=== PATIENT | female | born 1950 ===

== ENCOUNTER → 2018-10-03 | Outpatient (CLI) | payer MEDICARE, OTHER ==
[~2018-10-03] MED LIST: ASPI-1471 PO; DULO60CA56 PO; ESOM40CA42 PO; FLU180SY11 IM; MELO-205 PO; PRAM0.2520 PO; PRAM0.2524 PO
== END ==
LOC: LAB 14:55
PROVIDERS: ATTEND Emergency Medicine
DX: Z02.1 Encounter for pre-employment examination (principal)
CPT/HCPCS: 86480

== ENCOUNTER → 2018-10-08 | Outpatient (CLI) | payer MEDICARE, OTHER ==
--- NOTE | 2018-10-08 11:48 | RADIOLOGY IMAGING REPORT ---
FAC[place] [facility] [place] NAME: Nancy Johnson : 1950 MR: [id number] V: [id number] EXAM DATE: ORDERING PHYSICIAN: ANIYA HOLLINS TECHNOLOGIST: Location: [facility] [place] Patient: Nancy Johnson : 1950 Visit/Account:[id number] Date of Sevice: 10/08/2018 DEXA Scan Clinical history: screening. Comparison: None. LUMBAR SPINE: The bone mineral density (BMD) measured from L1-L4 correlates with a Z-score of 4.4 and a T-score of 3.2 which is within normal range as defined by the World Health Organization. The corresponding risk of fracture in the lumbar spine is not increased compared with a young adult reference population. HIP: Bone mineral density (BMD) measured in the Left total hip region correlates with a Z-score of 1.0 and a T-score of 0.0. The T-score of the femoral neck is -0.3. The lower of the two T score s is within normal range which is defined as defined by the World Health Organization. The corresp onding risk of fracture in the hip is not increased compared with a young adult reference population. Bone mineral density (BMD) measured in the Left Femoral Neck region measures 0.993 g/cm?. Impression: 1. Lumbar spine: Within normal range. 2. Left Total Hip: Within normal range. The next DEXA scan of this patient should include the following sites: L1-L4 and Left hip. FRAX? WHO Fracture Risk Assessment Tool link: <http://www.shef.ac.uk/FRAX/tool.jsp?locationValue=9> PLEASE NOTE: 1) The World Health Organization defines low BMD as follows: T-score Normal > -1 Osteopenia < -1 and > -2.5 Osteoporosis < -2.5 without fractures Established osteoporosis < -2.5 with fractures 2) In general, you may wish to consider: Diagnosis Treatment Follow-up DEXA Normal BMD Prevention 2-3 years Osteopenia Prevention/therapy 1-2 years Osteoporosis Therapy Yearly 3) Fracture risk estimated from the T-score is more accurate for vertebral fractures (often spontane ous) than for hip fractures. Report Dictated By: Kishore Tran MD at 10/08/2018 11:42 AM Report E-Signed By: Kishore Tran MD at 10/08/2018 11:44 AM WSN:[email or web address]
== END ==
LOC: RESP 01:11
PROVIDERS: ATTEND Emergency Medicine
DX: Z13.820 Encounter for screening for osteoporosis (principal); Z78.0 Asymptomatic menopausal state
CPT/HCPCS: 77080; 94060; 94726; 94729

== ENCOUNTER → 2018-12-12 | Outpatient (CLI) | payer MEDICARE, OTHER ==
[~2018-12-12] MED LIST changes: +LEVO750T44 PO
[2018-12-12 14:54] LABS: PLATELET COUNT, AUTOMATED 338 K/uL (150-450)
--- NOTE | 2018-12-12 15:54 | RADIOLOGY IMAGING REPORT ---
FACILITY: [facility] - [place] PATIENT NAME: Nancy Johnson : 1950 MR: [id number] V: [id number] EXAM DATE: ORDERING PHYSICIAN: ANIYA HOLLINS TECHNOLOGIST: Location: [facility] Patient: Nancy Johnson : 1950 Visit/Account:[id number] Date of Sevice: 12/12/2018 CT CTA CHEST W & W/O CON HISTORY: Elevated d-dimer and shortness of breath ADDITIONAL HISTORY: None. TECHNIQUE: CTA chest with intravenous contrast. Axial imaging acquired following administration of IV contrast timed for maximum opacification of the pulmonary arterial vasculature. Slab 3-D MIP boone nstructed images were also created for further evaluation and interpretation. Reconstruction of the [facility] data set includes multiplanar 2-D in the sagittal and coronal planes and 3-D reconstructed sumit nal slab MIP series. 3-D images were created by the technologist.Dose Lowering Technique One of the following dose optimization techniques was utilized in the performance of this exam: Autom ated exposure control; adjustment of the mA and/or kV according to the patient's size; or use of an i terative reconstruction technique. Specific details can be referenced in the facility's radiology C T exam operational policy. CONTRAST: 75 mL Isovue-370 COMPARISON: None. FINDINGS: Lungs/pleura: There is mild groundglass opacity in the medial right lower lobe which may represent d ependent change or less likely a developing infiltrate. No evidence of pleural effusions Heart/vessels: Negative. There are no filling defects seen in the pulmonary arteries worrisome for a pulmonary embolus. Mediastinum/lymph nodes: Negative. Visualized upper abdomen: Negative. Bones/soft tissues: Scoliosis of the thoracic spine with spondylotic changes Additional findings: None IMPRESSION: No evidence of pulmonary emboli Mild groundglass opacity in the medial right lower lobe which may represent dependent change or less likely a developing infiltrate Results were called to AINYA HOLLINS at 12/12/2018 3:48 PM. Report Dictated By: Viola Mosher MD at 12/12/2018 3:40 PM Report E-Signed By: Viola Mosher MD at 12/12/2018 3:50 PM WSN:[email or web address]
== END ==
LOC: LAB 14:34
PROVIDERS: ATTEND Emergency Medicine
DX: R06.00 Dyspnea, unspecified (principal); R78.89 Finding of other specified substances, not normally found in blood; R74.8 Abnormal levels of other serum enzymes
CPT/HCPCS: 36415; 71275; 82306; 84443; 85025; 86140; Q9967; 82040; 82247; 82310; 82374; 82435; 82465; 82565; 82947; 83718; 84075; 84132; 84155; 84295; 84450; 84460; 84478; 84520

== ENCOUNTER → 2018-12-12 | Outpatient (CLI) | payer MEDICARE, OTHER | LOC: LAB 09:24 | PROVIDERS: ATTEND Emergency Medicine | DX: R06.00 Dyspnea, unspecified (principal) | CPT/HCPCS: 36415; 83880; 85379 ==